=== PATIENT | female | born 1980 | race Two or more races ===

== ENCOUNTER 2017-08-07 20:25 | Emergency (ER) | payer OTHER ==
[2017-08-07] MEDS ORDERED: CLINDAMYCIN HCL 150 MG CAPSULE PO ONE (23:05)
--- NOTE | 2017-08-07 23:08 | ER Document Report ---
ED Skin Rash/Insect Bite/Abscs - General Chief Complaint: Abscess Stated Complaint: POSSIBLE ABSCESS Time Seen by Provider: 08/07/17 21:56 Notes: Patient is a 36-year-old female who presents to the emergency department today with complaint of multiple abscesses. Patient states that she has been getting recurrent abscesses over the last 2 years and has been seen at [facility] as that is where her primary care is. Patient states that she does not want her abscesses opened, she just wants to get some answers and get some antibiotics. Patient denies any fever chills nausea or vomiting. Denies any other past medical history besides the recurrent abscesses to her extremities. TRAVEL OUTSIDE OF THE [place] IN LAST 30 DAYS: No - HPI Patient complains to provider of: Tender/swollen area - Related Data Allergies/Adverse Reactions: No Known Allergies Allergy (Unverified 08/07/17 20:34) Past Medical History - General Information source: Patient - Social History Smoking Status: Never Smoker Chew tobacco use (# tins/day): No Frequency of alcohol use: Rare Drug Abuse: None Lives with: Family Family History: Reviewed & Not Pertinent Patient has suicidal ideation: No Patient has homicidal ideation: No - Past Medical History Cardiac Medical History: Reports: None Pulmonary Medical History: Reports: None EENT Medical History: Reports: None Neurological Medical History: Reports: None Endocrine Medical History: Reports: None Renal/ Medical History: Reports: None. Denies: Hx Peritoneal Dialysis Malignancy Medical History: Reports: None GI Medical History: Reports: None Musculoskeltal Medical History: Reports Hx Arthritis Skin Medical History: Reports Other - Multiple abscesses Psychiatric Medical History: Reports: None Traumatic Medical History: Reports: None Past Surgical History: Reports: Hx Section - x 5 - Immunizations Immunizations up to date: Yes Hx Diphtheria, Pertussis, Tetanus Vaccination: Yes Review of Systems - Review of Systems Constitutional: No symptoms reported EENT: No symptoms reported Cardiovascular: No symptoms reported Respiratory: No symptoms reported Gastrointestinal: No symptoms reported Genitourinary: No symptoms reported Female Genitourinary: No symptoms reported Musculoskeletal: No symptoms reported Skin: See HPI Hematologic/Lymphatic: No symptoms reported Neurological/Psychological: No symptoms reported Physical Exam - Vital signs Vitals: Temp Pulse Resp BP Pulse Ox 98.0 F 75 14 132/92 H 100 08/07/17 23:15 08/07/17 23:15 08/07/17 23:15 08/07/17 23:15 08/07/17 23:15 - Notes Notes: PHYSICAL EXAMINATION: GENERAL: Well-appearing, well-nourished and in no acute distress. HEAD: Atraumatic, normocephalic. EYES: Pupils equal round and reactive to light, extraocular movements intact, conjunctiva are normal. ENT: Nares patent. Moist mucous membranes. NECK: Normal range of motion, supple without lymphadenopathy LUNGS: Breath sounds clear to auscultation bilaterally and equal. No wheezes rales or rhonchi. HEART: Regular rate and rhythm without murmurs ABDOMEN: Soft, nontender, nondistended abdomen. Female : deferred Musculoskeletal: Normal range of motion, no edema. NEUROLOGICAL: Cranial nerves grossly intact. Normal speech, normal gait. Normal sensory, motor exams. PSYCH: Normal mood, normal affect. SKIN: Warm, Dry, multiple sites of what appears to be healing abscesses. One area on left hip that is slightly reddened but not fluctuant and not indurated. Course - Re-evaluation Re-evalutation: Patient has one area on her left hip that appears to be mildly erythematous but with no induration and no fluctuance. Patient reports that this is how her abscesses usually start. Patient is requesting oral antibiotics at this time as she does have a history of MRSA. Will start patient on antibiotics and recommend that she follow-up with dermatology. - Vital Signs Vital signs: Temp Pulse Resp BP Pulse Ox 98.0 F 75 14 132/92 H 100 08/07/17 23:15 08/07/17 23:15 08/07/17 23:15 08/07/17 23:15 08/07/17 23:15 Discharge - Discharge Clinical Impression: Abscess Condition: Stable Disposition: HOME, SELF-CARE Instructions: Abscess ([facility]) Additional Instructions: Your abscess would not benefit from incision and drainage at this time. Continue taking warm showers and using warm compresses. Please take the antibiotics as prescribed as you have stated that you have had multiple abscesses with MRSA. Please follow-up with dermatology for long-term care of your recurrent abscesses. Please return to the emergency department if you develop worsening pain, increased redness with streaking, swelling or fever. Prescriptions: Clindamycin HCl 300 mg PO TID 7 Days #21 capsule Referrals: DELVIN GALAVIZ DO [ACTIVE STAFF] - Follow up as needed
[2017-08-07 23:16] VITALS: BP 132/92
== END 2017-08-07 23:16 | disposition home or self-care (01) ==
LOC: ER 20:25
DX: L02.416 Cutaneous abscess of left lower limb (principal); Z86.14 Personal history of Methicillin resistant Staphylococcus aureus infection
CPT/HCPCS: 99282

== ENCOUNTER 2018-08-23 08:58 | Emergency (ER) | payer OTHER ==
[2018-08-23 09:12] VITALS: BP 168/101
[2018-08-23] MEDS ORDERED: IBUPROFEN 600 MG TABLET PO ONE (09:38)
--- NOTE | 2018-08-23 09:38 | ER Document Report ---
ED Skin Rash/Insect Bite/Abscs - General Chief Complaint: Abscess Stated Complaint: POSSIBLE ABSCESS Time Seen by Provider: 08/23/18 09:27 Mode of Arrival: Ambulatory Information source: Patient TRAVEL OUTSIDE OF THE [place] IN LAST 30 DAYS: No - HPI Patient complains to provider of: Tender/swollen area Notes: Patient is here with complaints of abscess. She states that she has an abscess to her right upper back. She states that she has gotten abscesses multiple times in the past and has had a history of MRSA at one point. No fevers. No nausea, vomiting, diarrhea. No chest pain or shortness of breath. No spreading rash. No headache or blurred vision. Pain is constant, moderate, worse with palpation. There is been no drainage from this area. She denies any other complaints at this time. - Related Data Allergies/Adverse Reactions: No Known Allergies Allergy (Verified 08/23/18 09:07) Past Medical History - Social History Smoking Status: Never Smoker Family History: Reviewed & Not Pertinent Patient has suicidal ideation: No Patient has homicidal ideation: No - Past Medical History Cardiac Medical History: Reports: Hx Hypertension Renal/ Medical History: Denies: Hx Peritoneal Dialysis Musculoskeletal Medical History: Reports Hx Arthritis Past Surgical History: Reports: Hx Section - x 5 - Immunizations Immunizations up to date: Yes Hx Diphtheria, Pertussis, Tetanus Vaccination: Yes Review of Systems - Review of Systems -: Yes All other systems reviewed and negative Physical Exam - Vital signs Vitals: Temp Pulse Resp BP Pulse Ox 98.3 F 91 18 168/101 H 99 08/23/18 09:11 08/23/18 09:11 08/23/18 09:11 08/23/18 09:11 08/23/18 09:11 - Notes Notes: GENERAL: alert, cooperative, nontoxic, no distress. HEAD: normocephalic, atraumatic EYES: conjunctiva pink without discharge, no external redness or swelling. EARS: no external swelling, no external redness NOSE: atraumatic, no external swelling MOUTH/THROAT: mucous membranes moist and pink NECK: soft, supple, full range of motion, no meningismus. CHEST: no distress, lungs clear and equal throughout. No wheezing, rales, rhonchi. CARDIAC: regular rate and rhythm, no murmur, normal capillary refill, normal pulses. BACK: full range of motion, no CVA tenderness. EXTREMITIES: full range of motion of all extremities. No redness, no swelling. NEURO: alert and oriented 3, no focal deficits, full range of motion of all extremities. PYSCH: appropriate mood, affect. Patient is cooperative. SKIN: pink, warm, dry, no rash. Indurated slightly reddened area to the right upper back. No fluctuance. Tender to palpation. Course - Re-evaluation Re-evalutation: 08/23/18 09:34 Patient is nontoxic-appearing with stable vitals. Patient here with complaints of abscess to the right upper back. On exam she is noted to have a red indurated area. There is no fluctuance. She is afebrile and nontoxic- appearing. I am not 100% convinced that I&D would be of benefit at this time as there is no fluctuance. I did offer to attempt an I&D, the patient states that she would prefer to try antibiotics and warm compresses. She understands that she may need to return at a later time for I&D if this does not help her. Due to the fact that the patient states she has a history of MRSA and gets frequent abscesses, I will also discharge her home with Hibiclens and Bactroban intranasal. She will be given a prescription for Bactrim and Keflex. She will also be given a prescription for Ultram. Follow-up for increasing pain, fever, redness, swelling, any further concerns. The patient's emergency department workup and current diagnosis were explained to the patient and or family. Follow-up instructions were provided. Medications if prescribed were discussed. Instructions for when to return to the emergency department including specific worrisome symptoms were discussed with the patient and/or family. - Vital Signs Vital signs: Temp Pulse Resp BP Pulse Ox 98.3 F 91 18 168/101 H 99 08/23/18 09:11 08/23/18 09:11 08/23/18 09:11 08/23/18 09:11 08/23/18 09:11 Discharge - Discharge Clinical Impression: Abscess Condition: Stable Disposition: HOME, SELF-CARE Instructions: Abscess ([facility]), MRSA Cellulitis ([facility]) Additional Instructions: Take medication as prescribed. Apply warm compresses to the sore area. Use the special soap 3 times a week as soap. Follow-up for increasing pain, fever, redness, drainage, any further concerns. Prescriptions: Tramadol HCl [Ultram 50 mg Tablet] 50 mg PO Q6HP PRN #12 tablet PRN Reason: Cephalexin Monohydrate [Keflex 500 mg Capsule] 500 mg PO Q6H #40 capsule Chlorhexidine Gluconate [Hibiclens Liquid] 1 applic TP ASDIR PRN #1 bottle PRN Reason: Mupirocin [Bactroban 2% Ointment 22 gm] 1 applic TP BID #1 tube Sulfamethoxazole/Trimethoprim [Bactrim Ds Tablet] 1 each PO BID #20 tablet Forms: Elevated Blood Pressure, Smoking Cessation Education Referrals: [facility] [Provider Group] - Follow up as needed
== END 2018-08-23 09:42 | disposition home or self-care (01) ==
LOC: ER 08:58
DX: L02.212 Cutaneous abscess of back [any part, except buttock and flank] (principal); Z86.14 Personal history of Methicillin resistant Staphylococcus aureus infection; I10 Essential (primary) hypertension
CPT/HCPCS: 99282

== ENCOUNTER → 2019-09-05 | Outpatient (CLI) | payer MEDICAID ==
[2019-09-05 11:07] LABS: ABSOLUTE BASOPHILS # (AUTO) 0.1 10^3/uL (0.0-0.2); ABSOLUTE EOSINOPHILS # (AUTO) 0.1 10^3/uL (0.0-0.6); ABSOLUTE LYMPHOCYTES (AUTO) 2.4 10^3/uL (0.5-4.7); ABSOLUTE MONOCYTES (AUTO) 0.6 10^3/uL (0.1-1.4); ABSOLUTE NEUT (AUTO) 5.1 10^3/uL (1.7-8.2); BASOPHILS % (AUTO) 0.9 % (0-2); EOSINOPHILS % (AUTO) 1.1 % (0-6); HEMATOCRIT 38.3 % (36.0-47.0); HEMOGLOBIN 12.7 g/dL (12.0-15.5); LYMPHOCYTES % (AUTO) 29.6 % (13-45); MEAN CORPUSCULAR HEMOGLOBIN 27.6 pg (27.0-33.4); MEAN CORPUSCULAR VOLUME 84 fl (80-97); MONOCYTES % (AUTO) 6.9 % (3-13); PLATELET COUNT 239 10^3/uL (150-450); RED BLOOD COUNT 4.58 10^6/uL (3.72-5.28); RED CELL DISTRIBUTION WIDTH 14.6 % (11.5-14.0); SEGMENTED NEUTROPHILS % (AUTO) 61.5 % (42-78); TOTAL CELLS COUNTED % (AUTO) 100 %; WHITE BLOOD COUNT 8.2 10^3/uL (4.0-10.5)
--- NOTE | 2019-09-05 11:16 | RADIOLOGY REPORT (SQ) ---
EXAM DESCRIPTION: CHEST PA/LATERAL IMAGES COMPLETED DATE/TIME: 09/05/2019 10:56 am REASON FOR STUDY: CHEST PAIN COMPARISON: None. EXAM PARAMETERS: NUMBER OF VIEWS: two views TECHNIQUE: Digital Frontal and Lateral radiographic views of the chest acquired. RADIATION DOSE: NA LIMITATIONS: none FINDINGS: LUNGS AND PLEURA: No opacities, masses or pneumothorax. No pleural effusion. MEDIASTINUM AND HILAR STRUCTURES: No masses or contour abnormalities. HEART AND VASCULAR STRUCTURES: Heart normal size. No evidence for failure. BONES: No acute findings. HARDWARE: None in the chest. OTHER: No other significant finding. IMPRESSION: NO SIGNIFICANT RADIOGRAPHIC FINDING IN THE CHEST. TECHNICAL DOCUMENTATION: JOB ID: [id number] 2010 [employer]- All Rights Reserved Reading location - IP/workstation name: [email or web address]
[2019-09-05 11:32] LABS: ALBUMIN 4.5 g/dL (3.5-5.0); ALKALINE PHOSPHATASE 59 U/L (38-126); ANION GAP 9 (5-19); ASPARTATE AMINO TRANSFERASE 17 U/L (14-36); BILIRUBIN,TOTAL 0.7 mg/dL (0.2-1.3); BLOOD UREA NITROGEN 14 mg/dL (7-20); CALCIUM 10.3 mg/dL (8.4-10.2); CARBON DIOXIDE 27 mmol/L (22-30); CHLORIDE 102 mmol/L (98-107); GLUCOSE 100 mg/dL (75-110); POTASSIUM 4.8 mmol/L (3.6-5.0); TOTAL PROTEIN 8.2 g/dL (6.3-8.2)
[2019-09-05 11:41] LABS: CREATINE KINASE MB < 0.22 ng/mL (<4.55); TROPONIN I < 0.012 ng/mL
== END ==
LOC: OD 10:22
PROVIDERS: ATTEND Physician Assistant
DX: R07.9 Chest pain, unspecified (principal)
CPT/HCPCS: 36415; 71046; 80053; 82553; 84484; 85025